=== PATIENT | male | born 2000 | race Caucasian/White ===

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

== ENCOUNTER 2019-02-04 09:58 | Emergency (ER) | payer MEDICAID, OTHER ==
[~2019-02-04] VITALS: Ht 167.6 cm; Wt 64.5 kg
[~2019-02-04 09:58] MED LIST: IBUP-1542 PO; NAPR-985 PO
[2019-02-04 10:05] VITALS: BP 127/66; PULSE 89; RESP 16; Ht 167.6 cm; Wt 64.5 kg
[2019-02-04] MEDS ORDERED: IBUPROFEN 800 MG TAB PO ONE (11:00)
[2019-02-04] MEDS ORDERED: predniSONE 20 MG TAB PO ONE (11:00)
== END 2019-02-04 10:56 | disposition home or self-care (01) ==
LOC: FTE 09:58
DX: M79.604 Pain in right leg (principal); M54.31 Sciatica, right side
CPT/HCPCS: J7512; Z7502; Z7610; 99283